=== PATIENT | female | born 2000 | race Caucasian/White ===

== ENCOUNTER 2022-04-29 12:47 | Emergency (ER) | payer OTHER, SELFPAY ==
[2022-04-29 13:51] VITALS: BP 131/84; PULSE 71; RESP 16; TEMP 36.9; O2SAT 99; BMI 20.7
--- NOTE | 2022-04-29 15:20 | ED.NURSE ---
Pt roomed to ED 2-2.
[2022-04-29 15:21] VITALS: BP 145/78; PULSE 81; O2SAT 97
--- NOTE | 2022-04-29 15:36 | CRLHL7_ITS ---
For Patients: As a result of the Century Cures Act, medical imaging exams and procedure reports are released immediately into your electronic medical record. You may view this report before your referring provider. If you have questions, please contact your health care provider. Indication: Fall, trauma. Technique: CT of the brain was performed without intravenous contrast. Comparison: None relevant available at this institution. Findings: No acute blurring of the almanzar-white differentiation. There is no intracranial hemorrhage. The ventricles are proportionate to the cerebral sulci. The 4th ventricle is midline. Basal cisterns appear patent. No abnormal extra-axial fluid collection identified. Hyperdensity within the caudal aspect of the 4th ventricle near the foramen of Luschka on the right is favored to represent choroid plexus calcification. Additional calcification of the choroid plexus along the lateral ventricles. There is no intracranial mass, mass effect or midline shift identified. No depressed calvarial fracture. Left maxillary sinus mucous retention cyst/polyp. Impression: No definite acute intracranial process. Please note that all CT scans at this facility use dose modulation, iterative reconstruction, and/or weight-based dosing when appropriate to reduce radiation dose to as low as reasonably achievable. Dictated by Jamar Orlando MD @ 04/29/2022 4:55:00 PM (Electronically Signed)
--- NOTE | 2022-04-29 15:36 | CRLHL7_ITS ---
For Patients: As a result of the Century Cures Act, medical imaging exams and procedure reports are released immediately into your electronic medical record. You may view this report before your referring provider. If you have questions, please contact your health care provider. Indication: Trauma. Technique: CT of the cervical spine performed without IV contrast. Comparison: None available. Findings: The cervical vertebral body heights are maintained without fracture. Moderate reversal to cervical lordosis. No significant spondylolisthesis. No overt evidence for high-grade spinal canal or neural foraminal narrowing. The visualized lung apices are clear. Neck soft tissues appear grossly intact Impression: 1. No acute fracture or traumatic subluxation of the cervical spine. 2. Moderate reversal to the cervical lordosis. Please note that all CT scans at this facility use dose modulation, iterative reconstruction, and/or weight-based dosing when appropriate to reduce radiation dose to as low as reasonably achievable. Dictated by Jamar Orlando MD @ 04/29/2022 4:58:35 PM (Electronically Signed)
[2022-04-29] MEDS: ACETAMINOPHEN 500 MG TABLET 1000 MG PO (15:50)
[2022-04-29] MEDS: ONDANSETRON ODT 4 MG TAB PO (15:50)
[2022-04-29 16:20] VITALS: BP 113/74; PULSE 80; O2SAT 98
--- NOTE | 2022-04-29 17:02 | ED.HEATRA ---
HPI - Head Injury General Date Seen: 04/29/22 Chief complaint: Head Injury/Pain Stated complaint: Passed out hit head Source: patient and other Mode of arrival: ambulatory Limitations: no limitations History of Present Illness HPI Narrative: Patient is a 21-year-old [employer] student who presents here after hyperventilation incident, that occurred approximately at 9:30 a.m. this morning. She felt her a panic attack coming on, then ran up 3 flights of stairs, she got to her room, and then promptly passed out striking her occipital region on the ground, she was out for a very short period of time but does know exactly how long she had been knocked out for. She came to when she had the pain in her head and also in her neck on the left side. She also feels nauseous and there is some photophobia with this. She took her Ativan which she normally takes for her panic attacks, that is much improved, but still has the above complaints, denies any numbness tingling or weakness, previous history of head injury, and she is not on any blood thinners, she called her parents who told her she should come to the emergency room to be seen. Complaint: head injury and fall Onset (ago): hour(s) Mechanism of Injury: fall Place: home Loss of Consciousness: yes and unsure Location of injury: occipital Severity: moderate Radiation: neck Other Injuries: neck Associated symptoms: nausea and neck pain Related Data Home Medications Medication Instructions Recorded Confirmed bupropion HCl 150 mg 24 hr tablet, mg PO 04/29/22 extended release lorazepam 0.5 mg tablet mg 04/29/22 sertraline 100 mg tablet mg 04/29/22 spironolactone 50 mg tablet mg 04/29/22 Allergies Allergy/AdvReac Type Severity Reaction Status Date / Time No Known Drug Allergies Allergy Verified 04/29/22 13:54 Review of Systems Status of ROS: Reports: 10 or more systems reviewed and unremarkable except as noted in History and below PFSH PFS Social History Smoking Status: Never smoker Do you use any of these nicotine containing products: None Second hand tobacco smoke exposure: No How often do you have a drink containing alcohol: monthly or less How many standard drinks containing alcohol do you have on a typical day: 1 or 2 How often do you have six or more drinks on one occasion: Never AUDIT-C Alcohol total score: 1 Non-prescribed substance use: marijuana (any form) Exam Narrative: Exam Narrative: Patient is seen in ED 2, she is in no apparent distress she is here with a friend, she is alert oriented, to person place and time, her pupils are equal round reactive, there is no nystagmus and she tracks normally, TMs are normal, cranial nerves 3-12 are normal, her neck is full range of motion of flexion extension lateral flexion and rotation, but she is tender along the left side of her neck, no bogginess to her head, a noted. Over septal region, but she complains of pain in this area. Chest is clear, easy respirations, heart sounds no clicks murmurs or gallops, abdomen soft, she has an IUD common says she is not . Fine motor movements fingers nose testing are normal, she walks normally and no ataxia is noted. Const: Vital Signs, click to edit/add: Vital Signs - 24 hr 04/29/22 13:51 04/29/22 15:21 04/29/22 16:20 Temperature 98.4 F Pulse Rate [Pulse Oximeter] 71 81 80 Respiratory Rate 16 Blood Pressure [Ri ght Upper Arm] 131/84 145/78 H 113/74 Pulse Oximetry 99 97 98 Oxygen Delivery Me thod Room Air Room Air Room Air Documenting provider has reviewed patient's vital signs: yes Course Course Hospital Course: Reviewed with the patient that her CTs of her head neck were normal, no evidence of anything other than a maxillary cyst, she may benefit from ENT follow-up. This can be done non acutely. I do however think she has a concussion would recommend that she use concussion protocol, and contact her Ant to get help with school. She should allow herself to sleep, no exercise, avoid alcohol, Tylenol for the headache, and use of Zofran for the nausea. Follow-up physician is recommended. She was very comfortable this plan. Vital Signs Vital signs: Initial Vital Signs Temperature 98.4 F 04/29/22 13:51 Temperature Source Temporal Artery Scan 04/29/22 13:51 Pulse Rate 71 04/29/22 13:51 Respiratory Rate 16 04/29/22 13:51 Blood Pressure 131/84 04/29/22 13:51 Blood Pressure Mean 99 04/29/22 13:51 Blood Pressure Position Sitting 04/29/22 13:51 Pulse Oximetry 99 04/29/22 13:51 Oxygen Delivery Method 04/29/22 13:51 Vital Signs Temperature 98.4 F 04/29/22 13:51 Pulse Rate 71 04/29/22 13:51 Respiratory Rate 16 04/29/22 13:51 Blood Pressure 131/84 04/29/22 13:51 Pulse Oximetry 99 04/29/22 13:51 Oxygen Delivery Method 04/29/22 13:51 Temperature 98.4 F 04/29/22 13:51 Pulse Rate 80 04/29/22 16:20 Respiratory Rate 16 04/29/22 13:51 Blood Pressure 113/74 04/29/22 16:20 Pulse Oximetry 98 04/29/22 16:20 Oxygen Delivery Method 04/29/22 16:20 MDM - Head Injury MDM Narrative Medical decision making narrative: Life-threatening differential diagnosis is considered include: Subarachnoid hemorrhage, subdural hemorrhage, epidural hemorrhage. Other differential diagnosis considered include concussion, closed head injury, or neck fracture. Imaging Data CT scan - head: Attestation: I have reviewed the pertinent imaging results. My impression: Negative head neck CT Radiologist's impression: Patient: [facility] Facility:?[facility] Patient ID:?[id number] Site Patient ID:?[id number]. Site :?[id number] Study:?CT Spine Cervical W/O-04/29/2022 4:08:23 PM Ordering Physician:Kojo Lyons Final Report: Indication: Trauma. Technique: CT of the cervical spine performed without IV contrast. Comparison: None available. Findings: The cervical vertebral body heights are maintained without fracture. Moderate reversal to cervical lordosis. No significant spondylolisthesis. No overt evidence for high-grade spinal canal or neural foraminal narrowing. The visualized lung apices are clear. Neck soft tissues appear grossly intact Impression: 1. No acute fracture or traumatic subluxation of the cervical spine. 2. Moderate reversal to the cervical lordosis. Please note that all CT scans at this facility use dose modulation, iterative reconstruction, and/or weight-based dosing when appropriate to reduce radiation dose to as low as reasonably achievable. Dictated by Jamar Orlando MD @ 04/29/2022 4:58:35 PM (Electronic Signature) Patient: KARMA PULLIAM Facility:?[facility] Patient ID:?[id number] Site Patient ID:?[id number]. Site :?[id number] Study:?CT Head W/O-04/29/2022 4:09:06 PM Ordering Physician:Kojo Lyons Final Report: Indication: Fall, trauma. Technique: CT of the brain was performed without intravenous contrast. Comparison: None relevant available at this institution. Findings: No acute blurring of the almanzar-white differentiation. There is no intracranial hemorrhage. The ventricles are proportionate to the cerebral sulci. The 4th ventricle is midline. Basal cisterns appear patent. No abnormal extra-axial fluid collection identified. Hyperdensity within the caudal aspect of the 4th ventricle near the foramen of Luschka on the right is favored to represent choroid plexus calcification. Additional calcification of the choroid plexus along the lateral ventricles. There is no intracranial mass, mass effect or midline shift identified. No depressed calvarial fracture. Left maxillary sinus mucous retention cyst/polyp. Impression: No definite acute intracranial process. Please note that all CT scans at this facility use dose modulation, iterative reconstruction, and/or weight-based dosing when appropriate to reduce radiation dose to as low as reasonably achievable. Dictated by Jamar Orlando MD @ 04/29/2022 4:55:00 PM (Electronic Signature) Discharge Plan Discharge Clinical Impression: Acute neck pain, Concussion without loss of consciousness, Closed head injury Patient Disposition: Home, Self-Care Condition: Stable Instructions: Concussion (ED), Head Injury (ED), Post Concussion Syndrome (ED), Neck Pain (ED) Additional Instructions: Home rest Tylenol 1 g every 8 hours, after 48 hours you may add additional ibuprofen, Zofran for the nausea the only real bad side effect of the Zofran is constipation. Recommend you contact your Ant, and tell that she have a concussion, may need some help with her studies, sleeping is okay and should be encouraged, but concentration and reading should be decreased over the next 48-72 hours to allow your brain to heal. Exercises should also not occur, and you should really take it easy. I recommend follow-up with the concussion specialist at the [facility], is the local person to see. Prescriptions: No Action sertraline 100 mg tablet lorazepam 0.5 mg tablet spironolactone 50 mg tablet bupropion HCl 150 mg tablet extended release 24 hr PO Follow Up/Referrals: Travon Argueta MD [Staff Physician] - Provider,Not a Local [Primary Care Provider] - Stand Alone Forms: [employer] Info Instructions
[2022-04-29 17:20] VITALS: BP 114/74; PULSE 79; RESP 18; TEMP 37; O2SAT 99
== END 2022-04-29 17:29 | disposition home or self-care (01) ==
PROVIDERS: Emergency Provider Family Medicine
DX: S06.9X9A Unspecified intracranial injury with loss of consciousness of unspecified duration, initial encounter (principal); G89.11 Acute pain due to trauma; M54.2 Cervicalgia; W18.39XA Other fall on same level, initial encounter; Y93.89 Activity, other specified; Y92.032 Bedroom in apartment as the place of occurrence of the external cause; Y99.8 Other external cause status
CPT/HCPCS: 70450; 72125; 99284; A9270

== ENCOUNTER 2022-10-23 10:48 | Emergency (ER) | payer OTHER, SELFPAY ==
[2022-10-23] VITALS (12 sets, daily range): BP systolic 116–123; BP diastolic 62–77; PULSE 89–104; RESP 22; TEMP 38.1–38.2; O2SAT 96–100; BMI 20.7
--- NOTE | 2022-10-23 11:41 | ED_ITS ---
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 She is able to drink liquids adequately. She has had no cough, no neck stiffness or rigidity, no fevers of marked rigors but does feel chilled occasionally patient has no skin rashes. She has noticed her joints feel little ?swollen? Patient reports she is on several mental health medications for anxiety and depression and sleep. Related Data Home Medications Medication Instructions Recorded Confirmed bupropion HCl 150 mg 24 hr tablet, mg PO 04/29/22 extended release lorazepam 0.5 mg tablet mg 04/29/22 sertraline 100 mg tablet mg 04/29/22 spironolactone 50 mg tablet mg 04/29/22 Allergies Allergy/AdvReac Type Severity Reaction Status Date / Time No Known Drug Allergies Allergy Verified 04/29/22 13:54 Review of Systems Status of ROS: Reports: 6 or more systems reviewed and unremarkable except as noted in History and below Narrative: Patient reports she had mononucleosis several years ago [facility] Social History Smoking Status: Never smoker Do you use any of these nicotine containing products: None Second hand tobacco smoke exposure: No How often do you have a drink containing alcohol: monthly or less How many standard drinks containing alcohol do you have on a typical day: 1 or 2 How often do you have six or more drinks on one occasion: Never AUDIT-C Alcohol total score: 1 Non-prescribed substance use: marijuana (any form) service: No Exam Narrative: Exam Narrative: Objective: Temperature is 100.6? vital signs otherwise unremarkable O2 sat excellent at 99% HEENT shows mildly reddened throat no exudate no marked swelling, no trismus, neck is supple Pulses regular Extremities are no edema neurologic nonfocal grossly, no skin rashes noted Const: Vital Signs, click to edit/add: Vital Signs - 24 hr 10/23/22 11:08 10/23/22 11:18 10/23/22 11:30 Temperature 100.6 F H Pulse Rate 98 93 Pulse Rate [Pulse Oximeter] 96 Respiratory Rate 22 Blood Pressure Blood Pressure [Le ft Upper Arm] 123/70 Pulse Oximetry 99 100 100 Oxygen Delivery Me thod Room Air 10/23/22 11:31 10/23/22 11:45 10/23/22 12:00 Temperature Pulse Rate 89 92 102 H Pulse Rate [Pulse Oximeter] Respiratory Rate Blood Pressure 117/77 Blood Pressure [Le ft Upper Arm] Pulse Oximetry 99 99 99 Oxygen Delivery Me thod 10/23/22 12:02 10/23/22 12:15 10/23/22 12:30 Temperature 100.6 F H Pulse Rate 104 H 98 Pulse Rate [Pulse Oximeter] Respiratory Rate Blood Pressure Blood Pressure [Le ft Upper Arm] Pulse Oximetry 99 98 Oxygen Delivery Me thod 10/23/22 12:45 10/23/22 13:00 10/23/22 13:07 Temperature 100.8 F H Pulse Rate 95 95 97 Pulse Rate [Pulse Oximeter] Respiratory Rate Blood Pressure 116/62 Blood Pressure [Le ft Upper Arm] Pulse Oximetry 96 96 96 Oxygen Delivery Me thod Course Vital Signs Vital signs: Initial Vital Signs Temperature 100.6 F H 10/23/22 11:08 Temperature Source Temporal Artery Scan 10/23/22 11:08 Pulse Rate 96 10/23/22 11:08 Pulse Rhythm Regular 10/23/22 11:08 Respiratory Rate 22 10/23/22 11:08 Blood Pressure 123/70 10/23/22 11:08 Blood Pressure Mean 87 10/23/22 11:08 Pulse Oximetry 99 10/23/22 11:08 Oxygen Delivery Method Room Air 10/23/22 11:08 Vital Signs Temperature 100.6 F H 10/23/22 11:08 Pulse Rate 96 10/23/22 11:08 Respiratory Rate 22 10/23/22 11:08 Blood Pressure 123/70 10/23/22 11:08 Pulse Oximetry 99 10/23/22 11:08 Oxygen Delivery Method Room Air 10/23/22 11:08 Temperature 100.8 F H 10/23/22 13:00 Pulse Rate 97 10/23/22 13:07 Respiratory Rate 22 10/23/22 11:08 Blood Pressure 116/62 10/23/22 13:07 Pulse Oximetry 96 10/23/22 13:07 Oxygen Delivery Method Room Air 10/23/22 11:08 Medical Decision Making MDM Narrative Medical decision making narrative: Patient is a 22 white female with sore throat some nasal congestion some body aches and fever. At this point I think it be reasonable to rule out strep, rule out COVID/influenza/RSV, rule out mononucleosis. Patient will get the above- mentioned studies, get some Tylenol orally. Disposition pending findings above. She was comfortable as planned. If these tests are all reassuring then simply Tylenol and Advil at home and observation time. Would recommend follow up with regular doctor in 2-3 days not improving changes concerns worsening return to the ED. Addendum: The patient's strep, COVID/influenza/RSV, mono spot test are all negative. White count is a little bit elevated. Recommend rest observation fluids return if problems concerns difficulty she was comfortable this plan thanks Lab Data Labs: Lab Results 10/23/22 10/23/22 Range/Units 11:51 12:05 WBC 14.40 H (4.50-11.00) K/uL RBC 4.79 (4.00-5.20) m/uL Hgb 13.7 (12.0-16.0) gm/dL Hct 43.0 (33.0-51.0) % MCV 90 (80-100) fL MCH 29 (26-34) pg MCHC 32 (32-36) gm/dL RDW Coeff of Padmini 12.4 (11.5-15.5) % Plt Count 173 (140-440) K/uL Neut % (Auto) 87.2 H (42.0-72.0) % Lymph % (Auto) 6.0 L (20-44) % [place] % (Auto) 5.7 (0.0-11.0) % Eos % (Auto) 0.7 (0.0-7.0) % Baso % (Auto) 0.1 (0.0-3.0) % Neut # (Auto) 12.60 H (1.7-7.0) K/uL Lymph # (Auto) 0.90 (0.90-2.90) K/uL [place] # (Auto) 0.80 (0.00-0.90) K/UL Eos # (Auto) 0.10 (0.00-0.50) K/uL Baso # (Auto) 0.00 (0.00-0.30) K/uL Sodium 137 (135-149) mmol/L Potassium 4.0 (3.6-5.1) mmol/L Chloride 104 (96-114) mmol/L Carbon Dioxide 24 (20-32) mmol/L BUN 14 (5-24) mg/dL Creatinine 0.9 (0.5-1.5) mg/dL Estimated Creat Clear 98.29 Estimated GFR 93 ml/min Glucose 100 (60-115) mg/dL Calcium 8.8 (8.4-10.6) mg/dL SARS-CoV-2 (PCR) Negative SARS-CoV-2 (Negative) Monoscreen Negative (Negative) Influenza Type A (PCR) Negative PCR FLU A (Negative) Influenza Type B (PCR) Negative PCR FLU B (Negative) RSV (PCR) Negative PCR RSV (Negative) Group A Strep DNA NOT DETECTED (Not Detectd) Discharge Plan Discharge Clinical Impression: Acute viral syndrome, Pharyngitis Patient Disposition: Home, Self-Care Condition: Stable Additional Instructions: Rest, light activity, Tylenol Advil as needed, recheck with primary care in 2-3 days not resolved, return to ED sooner problems or concerns. Activity Level: Light activity Discharge Diet: Regular Prescriptions: No Action sertraline 100 mg tablet lorazepam 0.5 mg tablet spironolactone 50 mg tablet bupropion HCl 150 mg tablet extended release 24 hr PO Follow Up/Referrals: Provider,Not a Local [Primary Care Provider] - Stand Alone Forms: [employer] Info Instructions
--- OUTSIDE RECORDS SUMMARY | 2022-10-23 11:55 | XMS_ITS | Continuity of Care Document ---
Author Name Unknown Organization [facility] Address [place] [address] [place] [address]- Care Team Providers Care Aws Software Development Engineer Name Role Phone Tuyet Reyes MD Primary Care Physician Encounter 08/04/18 - 08/06/18 [place] [address] [address] [place] [address] [facility] Encounter Diagnosis Fever(Discharge Diagnosis) - 08/04/18 Fatigue(Discharge Diagnosis) - 08/04/18 Headache(Discharge Diagnosis) - 08/04/18 Sore throat(Discharge Diagnosis) - 08/04/18 Muscle ache(Discharge Diagnosis) - 08/04/18 Attending Physician: Tuyet Reyes MD Allergies, Adverse Reactions, Alerts No Known Medication Allergies Assessment and Plan Extracted from: Title:Febrile illness/fatigue/headache Author:Tuyet Rolon MD Date:08/04/18 1. Fatigue 2. Febrile illness 3. Body aches 4. Headaches Likely viral etiology with WBC 4,200. Negative strep ID, negative mono spot, negative flu test. Send out labs include: Lyme titers, EBV and CMV titers, Vit D (low in the past), NASIR and Rheumatoid factor. I will call mother with these results: [phone] Sx cares include: Sleep: needs 8-9 hours Hydration: urine output clear or light yellow to assure adequate H2O intake Ibuprofen for fever >101 and/or for throat pain. Keep track of fevers. Follow-up if fevers >101 persist. For worsening headaches consider referral to Neurology ? 30 minutes total/20 minutes counseling Immunizations Given and Recorded Vaccine Date Status Refusal Reason influenza virus vaccine, inactivated 03/31/17 Give n influenza virus vaccine, inactivated 06/13/16 Give n influenza virus vaccine, inactivated 04/27/15 Rebel rded influenza virus vaccine, inactivated 1 06/05/11 Gi minh influenza virus vaccine, inactivated 2 04/11/10 Gi minh influenza virus vaccine, inactivated 3 05/05/08 Gi minh meningococcal conjugate vaccine 03/31/17 Given meningococcal conjugate vaccine 4 12/07/12 Given human papillomavirus vaccine 06/13/16 Given human papillomavirus vaccine 02/12/16 Given human papillomavirus vaccine 12/11/15 Given tetanus/diphth/pertuss (Tdap) adult/adol 5 12/07/12 Given Hep A, pediatric/adolescent 6 05/05/08 Given Hep A, pediatric/adolescent 7 07/29/07 Given varicella 8 07/29/07 Given varicella 07/14/01 Recorded DTaP 02/28/05 Recorded DTaP 11/02/01 Recorded DTaP 01/06/01 Recorded DTaP 00 Recorded DTaP 00 Recorded MMR (measles/mumps/rubella) 02/28/05 Recorded MMR (measles/mumps/rubella) 07/14/01 Recorded IPV 02/28/05 Recorded IPV 01/06/01 Recorded IPV 00 Recorded pneumococcal (PCV7) 11/02/01 Recorded pneumococcal (PCV7) 07/14/01 Recorded pneumococcal (PCV7) 01/06/01 Recorded pneumococcal (PCV7) 00 Recorded Hib (PRP-T) 11/02/01 Recorded Hib (PRP-T) 01/06/01 Recorded Hib (PRP-T) 9 01/06/01 Recorded Hib (PRP-T) 00 Recorded Hib (PRP-T) 00 Recorded hepatitis B pediatric vaccine 04/13/01 Recorded hepatitis B pediatric vaccine 00 Recorded hepatitis B pediatric vaccine 00 Recorded 1Result Comment: Unknown Unit of Measure: UNKNOWNUNIT 2Result Comment: Unknown Unit of Measure: UNKNOWNUNIT 3Result Comment: Unknown Unit of Measure: UNKNOWNUNIT 4Result Comment: Unknown Unit of Measure: UNKNOWNUNIT 5Result Comment: Unknown Unit of Measure: UNKNOWNUNIT 6Result Comment: Unknown Unit of Measure: UNKNOWNUNIT 7Result Comment: Unknown Unit of Measure: UNKNOWNUNIT 8Result Comment: Unknown Unit of Measure: UNKNOWNUNIT 9Result Comment: [01/17/2014 Uncharted] duplicate date Medications drospirenone-ethinyl estradiol 3 mg-0.02 mg oral tablet See Instructions, Instructions: TAKE 1 TABLET DAILY, # 84 tab(s), 4 Refill(s), Type: Soft Stop, Pharmacy: [facility], TAKE 1 TABLET DAILY Start Date: 03/31/17 Status: Ordered Problem List Condition Effective Dates Status Health Status Inform ant Uses control(Confirmed) Active Irregular menses(Confirmed) Active Diagnosis Diagnosis Type Effective Dates Health Status Clini becki Service Informant Fever Discharge Diagnosis 08/04/18 Muscle ache Discharge Diagnosis 08/04/18 Sore throat Discharge Diagnosis 08/04/18 Fatigue Discharge Diagnosis 08/04/18 Headache Discharge Diagnosis 08/04/18 Procedures Procedure Date Related Diagnosis Body Site Status Collection of venous blood b y venipuncture 08/04/18 Completed Collection of venous blood b y venipuncture 08/04/18 Completed Results Most recent to oldest [Reference Range]: 1 EBV Acute IA Reference Lab (08/04/18 11:00 AM) Mononucleosis Scrn [Negative] Negative (08/04/18 11:00 AM) RBC Morphology [Normal] Normal (08/04/18 11:00 AM) Hct [33.0-51.0 %] 40.3 % (08/04/18 11:00 AM) Hgb [12.0-16.0 g/dL] 13.0 g/dL (08/04/18 11:00 AM) MCH [26.0-34.0 pg] 28.2 pg (08/04/18 11:00 AM) MCHC [32.0-36.0 %] 32.4 % (08/04/18 11:00 AM) MCV [80.0-100.0 fL] 87.0 fL (08/04/18 11:00 AM) MPV [6.5-10.0 fL] 9.4 fL (08/04/18 11:00 AM) Platelet [150-450 x10^3/uL] 168 x10^3/uL (08/04/18 11:00 AM) RBC [4.00-5.20 x10^6/uL] 4.63 x10^6/uL (08/04/18 11:00 AM) RDW [11.5-13.1 %] 13.0 % (08/04/18 11:00 AM) Sed Rate [0-20 mm] 2 mm (08/04/18 11:04 AM) WBC [4.5-11.0 x10^3/uL] 4.2 x10^3/uL *LOW* (08/04/18 11:00 AM) Instr WBC [4.5-11.0 x10^3/uL] 4.2 x10^3/ uL *LOW* (08/04/18 11:00 AM) CMV IgG Reference Lab (08/04/18 11:00 AM) CMV IgM Reference Lab (08/04/18 11:00 AM) Eosinophils % Man [0.0-3.0 %] 0.0 % (08/04/18 11:00 AM) Lymphocytes % Man [24.0-44.0 %] 15.0 % *LOW* (08/04/18 11:00 AM) Monocytes % Man [3.0-6.0 %] 2.0 % *LOW* (08/04/18 11:00 AM) Vitamin D 25-OH Reference Lab (08/04/18 11:00 AM) Rheumatoid Factor Reference Lab (08/04/18 11:04 AM) Neutrophils % Man [35.0-66.0 %] 83.0 % *HI* (08/04/18 11:00 AM) Platelet Estimate [Adequate] Adequate (08/04/18 11:00 AM) Culture Throat No GABS Recovd (08/04/18 10:58 AM) Lyme WB Reference Lab (08/04/18 11:00 AM) Influenza A/B [Neg A & B] Neg A & B (08/04/18 10:58 AM) Strep ID [Negative] Negative (08/04/18 10:58 AM) Vital Signs Most recent to oldest [Reference Range]: 1 Height Measured 69.25 in (08/04/18 10:33 AM) Weight Measured 124 lb (08/04/18 10:33 AM) Body Mass Index 18.18 kg/m2 (08/04/18 10:33 AM) BSA 1.66 m2 (08/04/18 10:33 AM) Temperature Temporal [97.3-100 DegF] 101 .6 DegF *HI* (08/04/18 10:33 AM) Oxygen Saturation [94-100 %] 96 % (08/04/18 10:33 AM) Social History Social History Type Response Smoking Status Never (less than 100 in lifetime); Concerns about tobacco use in household: No entered on: 10/15/17
--- OUTSIDE RECORDS SUMMARY | 2022-10-23 11:55 | XMS_ITS | Continuity of Care Document ---
Author Name Unknown Organization [facility] Address [facility] [address] [place] [address]- Encounter 11/26/17 - 11/28/17 [facility] [address] [place], [place] [address] [address] Encounter Diagnosis FHx: pulmonary embolism(Discharge Diagnosis) - 11/26/17 Anemia(Discharge Diagnosis) - 11/26/17 Preop examination(Discharge Diagnosis) - 11/26/17 Stenosis of nasolacrimal duct(Discharge Diagnosis) - 11/26/17 Attending Physician: Tuyet Reyes MD Allergies, Adverse Reactions, Alerts No Known Medication Allergies Assessment and Plan Extracted from: Title:Preop Author:Tuyet Reyes MD Date:11/26 Patient: KARMA PULLIAM Age: 17 years Sex: Female : 2000 Associated Diagnoses: None Author: Tuyet Reyes MD Preoperative Information Indication for surgery Chief Complaint 11/26/2017 3:07 PM CDT Preop DCR right eye on 12/01/17 @ [facility] fax [phone] preop Review of Systems Constitutional: Negative. Eye: nasolacrimal duct obstruction, No discharge. Ear/Nose/Mouth/Throat: No nasal congestion, No sore throat. Respiratory: No shortness of breath, No cough. Gastrointestinal: No vomiting, No diarrhea, No constipation. Genitourinary: No dysuria. Hematology/Lymphatics: No bruising tendency. Immunologic: No recurrent infections. Musculoskeletal: No muscle pain. Integumentary: No rash, No skin lesion. Neurologic: Alert and oriented X4. Health Status Allergies: Allergic Reactions (All) No Known Medication Allergies Medications: (Selected) Prescriptions Prescribed drospirenone-ethinyl estradiol 3 mg-0.02 mg oral tablet: See Instructions, Instructions: TAKE 1 TABLET DAILY, # 84 tab(s), 4 Refill(s), Type: Soft Stop, Pharmacy: [facility], TAKE 1 TABLET DAILY, No aspirin or Ibuprofen Problem list: All Problems (Selected) Irregular menses / SNOMED CT 250485119 / Confirmed Uses control / SNOMED CT 24868976 / Confirmed Allergic Rhinitis, Cause Unspecified / ICD-9-CM 477.9 Histories Past Medical History: No active or resolved past medical history items have been selected or recorded. Family History: Diabetes.. Grandfather (M) , No family history of anesthesia reactions, bleeding or clotting problems Procedure history: No active procedure history items have been selected or recorded. Social History: Tobacco Assessment Never (less than 100 in lifetime), Household tobacco concerns: No. Other Assessment Comments: 01/17/2014 - [employer] , Krystal Drinks well water, no fluoride supplement. Physical Examination Vital Signs 11/26/2017 3:07 PM CDT Temperature Temporal 98.5 DegF Peripheral Pulse Rate 60 bpm Systolic Blood Pressure 108 mmHg Diastolic Blood Pressure 66 mmHg Mean Arterial Pressure 80 mmHg Measurements from flowsheet : Measurements 11/26/2017 3:07 PM CDT Height Measured - Standard 68.75 in Weight Measured - Standard 119 lb BSA 1.62 m2 Body Mass Index 17.7 kg/m2 Body Mass Index Percentile 7.60 General: Alert and oriented. Eye: Pupils are equal, round and reactive to light, Extraocular movements are intact. HENT: Tympanic membranes are clear, Oral mucosa is moist, No pharyngeal erythema. Neck: Supple, Non-tender. Respiratory: Lungs are clear to auscultation, Respirations are non-labored, Breath sounds are equal. Cardiovascular: Normal rate, Regular rhythm, No murmur. Gastrointestinal: Soft, Non-tender, Non-distended, Normal bowel sounds, No organomegaly. Musculoskeletal: Normal range of motion, Normal strength. Integumentary: Warm, [place], No rash. Neurologic: Alert, Oriented, Normal motor function. Psychiatric: Cooperative, Appropriate mood & affect. Health Maintenance Recommendations Pending (in the next year) There are no current recommendations pending Due In Future Well Child 2 yrs - 18 yrs not due until 03/31/18 and every 1 year(s) Satisfied (in the past 1 year) Satisfied Body Mass Index Check (Female) on 11/26/17. Body Mass Index Check (Female) on 10/15/17. Body Mass Index Check (Female) on 03/31/17. Well Child 2 yrs - 18 yrs on 03/31/17. Impression and Plan Diagnosis ok for anesthesia. Addendum by Tuyet Reyes MD on November 26, 2017 4:28 PM CDT Mother with pulmonary embolism last year . Would like Karma checked for clotting disorders due to her OCPs. Labs pending. She also had a hx of anemia and would like Karma's hgb checked. IT is normal Immunizations Given and Recorded Vaccine Date Status [...] varicella 8 07/29/07 Given varicella 07/14/01 Recorded IPV 02/28/05 Recorded IPV 01/06/01 Recorded IPV 00 Recorded MMR (measles/mumps/rubella) 02/28/05 Recorded MMR (measles/mumps/rubella) 07/14/01 Recorded DTaP 02/28/05 Recorded DTaP 11/02/01 Recorded DTaP 01/06/01 Recorded DTaP 00 Recorded DTaP 00 Recorded Hib (PRP-T) 11/02/01 Recorded Hib (PRP-T) 01/06/01 Recorded Hib (PRP-T) 9 01/06/01 Recorded Hib (PRP-T) 00 Recorded Hib (PRP-T) 00 Recorded pneumococcal (PCV7) 11/02/01 Recorded pneumococcal (PCV7) 07/14/01 Recorded pneumococcal (PCV7) 01/06/01 Recorded pneumococcal (PCV7) 00 Recorded hepatitis B pediatric vaccine 04/13/01 [...] tab(s), 4 Refill(s), Type: Soft Stop, Pharmacy: [facility], TAKE 1 TABLET DAILY Start Date: 03/31/17 Status: Ordered Problem List Condition Effective Dates Status Health Status Inform ant Uses control(Confirmed) Active Irregular menses(Confirmed) Active Diagnosis Diagnosis Type Effective Dates Health Status Clinical Service Informant Stenosis of nasolacrimal duct Discharge Diagnosis 11/26/17 Anemia Discharge Diagnosis 11/26/17 Preop examination Discharge Diagnosis 11/26/17 FHx: pulmonary embolism Discharge Diagnosis 11/26/17 Procedures Procedure Date Related Diagnosis Body Site Status Collection of venous blood b y venipuncture 11/26/17 Completed Collection of venous blood b y venipuncture 11/26/17 Completed Results Hematology Most recent to oldest [Reference Range]: 1 WBC [4.5-13.0 x10^3/uL] 7.3 x10^3/uL (11/26/17 3:45 PM) Instr WBC [4.5-13.0 x10^3/uL] 7.3 x10^3/ uL (11/26/17 3:45 PM) RBC [4.10-5.10 x10^6/uL] 4.46 x10^6/uL (11/26/17 3:45 PM) Hgb [12.0-16.0 g/dL] 13.0 g/dL (11/26/17 3:45 PM) Hct [33.0-51.0 %] 38.1 % (11/26/17 3:45 PM) MCV [78.0-102.0 fL] 85.4 fL (11/26/17 3:45 PM) MCH [25.0-35.0 pg] 29.0 pg (11/26/17 3:45 PM) MCHC [32.0-36.0 %] 34.0 % (11/26/17 3:45 PM) RDW [11.5-14.0 %] 12.3 % (11/26/17 3:45 PM) Platelet [150-450 x10^3/uL] 210 x10^3/uL (11/26/17 3:45 PM) MPV [6.5-10.0 fL] 9.0 fL (11/26/17 3:45 PM) Lymphocytes % Man [25.0-45.0 %] 47.0 % *HI* (11/26/17 3:45 PM) Neutrophils % Man [34.0-64.0 %] 49.0 % (11/26/17 3:45 PM) Monocytes % Man [3.0-6.0 %] 2.0 % *LOW* (11/26/17 3:45 PM) Eosinophils % Man [0.0-3.0 %] 1.0 % (11/26/17 3:45 PM) Basophils % Man [0.0-1.0 %] 1.0 % (11/26/17 3:45 PM) Platelet Estimate [Adequate] Adequate (11/26/17 3:45 PM) RBC Morphology [Normal] Normal (11/26/17 3:45 PM) Vital Signs Most recent to oldest [Reference Range]: 1 Height Measured 68.75 in (11/26/17 3:07 PM) Weight Measured 119 lb (11/26/17 3:07 PM) Body Mass Index 17.7 kg/m2 (11/26/17 3:07 PM) BSA 1.62 m2 (11/26/17 3:07 PM) Temperature Temporal [96.8-100.4 DegF] 9 8.5 DegF (11/26/17 3:07 PM) Blood Pressure [90-138/45-84 mmHg] 108/6 6mmHg (11/26/17 3:07 PM) Mean Arterial Pressure 80 mmHg (11/26/17 3:07 PM) Peripheral Pulse Rate [55-90 bpm] 60 bpm (11/26/17 3:07 PM) Allergies Verified? Yes (11/26/17 3:07 PM) Medication History Verified? Yes (11/26/17 3:07 PM) Social History Social History Type Response Smoking Status Never (less than 100 in lifetime); Concerns about tobacco use in household: No entered on: 10/15/17
--- OUTSIDE RECORDS SUMMARY | 2022-10-23 11:55 | XMS_ITS | Continuity of Care Document ---
Author Name Unknown Organization [facility] Address [facility] [address] [place] [address]- Care Team Providers Care Research Fellow Name Role Phone Tuyet Reyes MD Primary Care Physician Encounter 01/13/19 - 01/15/19 [place] [address] [address] [place] [address] [facility] Encounter Diagnosis Immunization due(Discharge Diagnosis) - 01/13/19 Well adult exam(Discharge Diagnosis) - 01/13/19 Depression screen(Discharge Diagnosis) - 01/13/19 Body mass index 5th to < 85th percentile, pediatric(Discharge Diagnosis) - 01/13/19 Attending Physician: Tuyet Reyes MD Allergies, Adverse Reactions, Alerts No Known Medication Allergies Assessment and Plan Extracted from: Title:18 year [facility] Author:Tuyet Reyes MD Date: Impression and Plan Plan: BMI discussed. Counseled on healthy diet and physical activity recommendations., Return in 1 year for well exam.. Refer to: Referral to dentist. 1. 18 year [facility] 2. exercise -induced bronchospasm 3. Irregular menses and continues on OCPs Immunizations Given and Recorded Vaccine Date Status [...] 9Result Comment: [01/17/2014 Uncharted] duplicate date Medications Ericka 0.35 mg oral tablet = 1 tab(s) ( 0.35 mg ), Oral, daily, # 84 tab(s), 3 Refill(s), Type: Maintenance, Pharmacy: [facility], 1 tab(s) Oral daily,x84 day(s) Start Date: 01/13/19 Stop Date: 12/15/19 Status: Ordered ProAir HFA 90 mcg/inh inhalation aerosol 2 puff(s), Inhale, qid, # 1 EA, 2 Refill(s), Type: Maintenance, Pharmacy: [facility], 2 puff(s) Inhale qid Start Date: 01/15/19 Status: Ordered Problem List Condition Effective Dates Status Health Status Inform ant Uses control(Confirmed) Active Irregular menses(Confirmed) Active Diagnosis Diagnosis Type Effective Dates Health Status Clinical Service Informant Immunization due Discharge Diagnosis 01/13/19 Well adult exam Discharge Diagnosis 01/13/19 Depression screen Discharge Diagnosis 01/13/19 Body mass index 5th to < 85th percentile, pediatric Discharge Diagnosis 01/13/19 Vital Signs Most recent to oldest [Reference Range]: 1 Height Measured 69.25 in (01/13/19 1:14 PM) Weight Measured 130.6 lb (01/13/19 1:14 PM) Body Mass Index 19.15 kg/m2 (01/13/19 1:14 PM) BSA 1.7 m2 (01/13/19 1:14 PM) Blood Pressure [90-130/60-80 mmHg] 101/5 4mmHg (01/13/19 1:14 PM) Mean Arterial Pressure 70 mmHg (01/13/19 1:14 PM) Allergies Verified? Yes (01/13/19 1:14 PM) Medication History Verified? Yes (01/13/19 1:14 PM) Social History Social History Type Response Smoking Status Never (less than 100 in lifetime); Concerns about tobacco use in household: No entered on: 10/15/17
--- OUTSIDE RECORDS SUMMARY | 2022-10-23 11:55 | XMS_ITS | Continuity of Care Document ---
Author Name Unknown Organization [facility] Address [facility] [address] [address]- Care Team Providers Care Pea Viner Mechanic Name Role Phone Tuyet Reyes MD Primary Care Physician Encounter(s) 08/04/18 [facility] [address] [place] [address] [facility] Attending Physician: Tuyet Reyes MD 11/26/17 - 11/26/17 [facility] [address] [place] [address]- [place] 11/26/17 - 11/26/17 [facility] [address] [place] [address]- [place] 11/26/17 - 11/28/17 [facility] [address] [place] [address]- [place] Encounter Diagnosis FHx: pulmonary embolism(Discharge Diagnosis) - 11/26/17 Anemia(Discharge Diagnosis) - 11/26/17 Preop examination(Discharge Diagnosis) - 11/26/17 Stenosis of nasolacrimal duct(Discharge Diagnosis) - 11/26/17 Attending Physician: Tuyet eRyes MD 10/15/17 - 10/17/17 [facility] [address] [place] [address]- [place] Encounter Diagnosis Fever(Discharge Diagnosis) - 10/15/17 Lymphadenopathy(Discharge Diagnosis) - 10/15/17 Attending Physician: Savage Alexandra MD Allergies, Adverse Reactions, Alerts No Known Medication Allergies Assessment and Plan Extracted from: Title:Preop Author:Tuyet Reyes MD Date:11/26 Patient: KARMA PULLIAM Age: 17 years Sex: Female : 2000 Associated Diagnoses: None Author: Tuyet Reyes MD Preoperative Information Indication for surgery Chief Complaint 11/26/2017 3:07 PM CDT Preop DCR right eye on 12/01/17 @ [facility] fax [phone] preop Review of Systems Constitutional: Negative. Eye: [...] Problems (Selected) Irregular menses / SNOMED CT 573635520 / Confirmed Uses control / SNOMED CT 39777732 / Confirmed Allergic Rhinitis, Cause Unspecified / [...] concerns: No. Other Assessment Comments: 01/17/2014 - Krystal Goncalves LPN Drinks well water, no fluoride supplement. Physical [...] range of motion, Normal strength. Integumentary: Warm, [place], No rash. Neurologic: Alert, Oriented, Normal motor [...] Plan Diagnosis ok for anesthesia. Addendum by Elva Reyes MDah on November 26, 2017 4:28 PM CDT Mother with pulmonary embolism last year . Would like Karma checked for clotting disorders due to her OCPs. Labs pending. She also had a hx of anemia and would like Karma's hgb checked. IT is normal Extracted from: Title:Fever-lymphadenopathy Author:Ibrahima MENDOZA, Naldo conway Date:10/15/17 Impression and Plan Diagnosis Fever (YAS70-PM R50.9). Sore throat (XDM28-ZF J02.9). Lymphadenopathy (EZO77-DA R59.1). Plan: Patient has fever and sore throat was swollen submandibular lymph nodes. Patient is on cephalexin so she does not have strep. This is most likely a new illness. We discussed enterovirus, influenza, adenovirus, mono. We did check an influenza swab given her history of mild asthma and it was negative. She does not have any respiratory symptoms at this time. This will most likely resolve on its own or blossoming into a more typical viral illness. We recommended Tylenol or ibuprofen for pain and fever. We will observe for 72 hours and if fever persists or dehydration, respiratory distress, or questions we will follow up sooner.. Extracted from: Title:16 year WCC/OCP refill Author:Anna Marie Reyes MD [facility] Date:03/31/17 Impression and Plan Plan: Immunizations per schedule. Diet: Age appropriate diet, Referral to dentist, BMI discussed. Counseled on healthy diet and physical activity recommendations.. Anticipatory Guidance: Adolescence (11 - 21 years). 1. 16 year WCC 2. Irregular menses continue OCPs Immunizations Given and Recorded Vaccine Date [...] tab(s), 4 Refill(s), Type: Soft Stop, Pharmacy: [facility] HOME DELIVERY, TAKE 1 TABLET DAILY Start Date: 03/31/17 Status: Ordered Problem List Condition Effective Dates Status Health Status Inform ant Uses control(Confirmed) Active Irregular menses(Confirmed) Active Diagnosis Diagnosis Type Effective Dates Health Status Clinical Service Informant Lymphadenopathy Discharge Diagnosis 10/15/17 Depression screen Discharge Diagnosis 12/11/15 Encounter for well child exam with abnormal findings Discharge Diagnosis 12/11/15 Exercise-induced asthma Discharge Diagnosis 12/11/15 Uses control Discharge Diagnosis 03/31/17 Body mass index 5th to < 85th percentile, pediatric Discharge Diagnosis 12/11/15 Well child check Discharge Diagnosis 12/11/15 Immunization due Discharge Diagnosis 12/11/15 Well child check Discharge Diagnosis 03/31/17 Depression screen Discharge Diagnosis 03/31/17 Body mass index 5th to < 85th percentile, pediatric Discharge Diagnosis 03/31/17 Irregular menses Discharge Diagnosis 03/31/17 Immunization due Discharge Diagnosis 02/12/16 Fever Discharge Diagnosis 10/15/17 Immunization due Discharge Diagnosis 03/31/17 Well child visit Discharge Diagnosis 01/17/14 BMI,pediatric 5% - <85% Discharge Diagnosis 01/17/14 Stenosis of nasolacrimal duct Discharge Diagnosis 11/26/17 Anemia Discharge Diagnosis 11/26/17 Preop examination Discharge Diagnosis 11/26/17 FHx: pulmonary embolism Discharge Diagnosis 11/26/17 Immunization due Discharge Diagnosis 06/13/16 Procedures Procedure Date Related Diagnosis Body Site Status Collection of venous blood b y venipuncture 11/26/17 Completed Collection of venous blood b y venipuncture 11/26/17 Completed Collection of venous blood b y venipuncture. 11/07/14 Completed Results Most recent to oldest [Reference Range]: 1 2 RBC Morphology [Normal] Normal (11/26/17 3:45 PM) Normal (11/07/14 11:45 AM) TSH [0.450-4.500 uIU/mL] 1.610 uIU/mL (11/07/14 3:13 PM) Glucose Random [60-105 mg/dL] 82 mg/dL (11/07/14 11:45 AM) Hct [33.0-51.0 %] 38.1 % (11/26/17 3:45 PM) 41.7 % (11/07/14 11:45 AM) Hgb [12.0-16.0 g/dL] 13.0 g/dL (11/26/17 3:45 PM) 13.6 g/dL (11/07/14 11:45 AM) MCH [25.0-35.0 pg] 29.0 pg (11/26/17 3:45 PM) 28.7 pg (11/07/14 11:45 AM) MCHC [32.0-36.0 %] 34.0 % (11/26/17 3:45 PM) 32.8 % (11/07/14 11:45 AM) MCV [78.0-102.0 fL] 85.4 fL (11/26/17 3:45 PM) 87.8 fL (11/07/14 11:45 AM) MPV [6.5-10.0 fL] 9.0 fL (11/26/17 3:45 PM) 9.4 fL (11/07/14 11:45 AM) Platelet [150-450 x10^3/uL] 210 x10^3/uL (11/26/17 3:45 PM) 187 x10^3/uL (11/07/14 11:45 AM) RBC [4.10-5.10 x10^6/uL] 4.46 x10^6/uL (11/26/17 3:45 PM) 4.75 x10^6/uL (11/07/14 11:45 AM) RDW [11.5-14.0 %] 12.3 % (11/26/17 3:45 PM) 12.6 % (11/07/14 11:45 AM) T4 Free [0.93-1.60 ng/dL] 1.16 ng/dL (11/07/14 3:13 PM) WBC [4.5-13.0 x10^3/uL] 7.3 x10^3/uL (11/26/17 3:45 PM) 8.6 x10^3/uL (11/07/14 11:45 AM) Protein S Tot [60-150 %] 39 % 1 *LOW* (11/26/17 5:17 PM) Instr WBC [4.5-13.0 x10^3/uL] 7.3 x10^3/ uL (11/26/17 3:45 PM) 8.6 x10^3/uL (11/07/14 11:45 AM) Protein S Free [57-157 %] 56 % 2 *LOW* (11/26/17 5:17 PM) Eosinophils % Man [0.0-3.0 %] 1.0 % (11/26/17 3:45 PM) 3.0 % (11/07/14 11:45 AM) Basophils % Man [0.0-1.0 %] 1.0 % (11/26/17 3:45 PM) 1.0 % (11/07/14 11:45 AM) Lymphocytes % Man [25.0-45.0 %] 47.0 % *HI* (11/26/17 3:45 PM) 30.0 % (11/07/14 11:45 AM) Monocytes % Man [3.0-6.0 %] 2.0 % *LOW* (11/26/17 3:45 PM) 4.0 % (11/07/14 11:45 AM) Vitamin D 25-OH [30.0-100.0 ng/mL] 25.7 ng/mL 3 *LOW* (11/07/14 3:13 PM) Vitamin D 25-OH Reference Lab (11/07/14 11:45 AM) Protein S Func [63-140 %] 57 % 4 *LOW* (11/26/17 5:17 PM) Neutrophils % Man [34.0-64.0 %] 49.0 % (11/26/17 3:45 PM) 62.0 % (11/07/14 11:45 AM) Platelet Estimate [Adequate] Adequate (11/26/17 3:45 PM) Adequate (11/07/14 11:45 AM) Protein C Resist [2.2-3.5 ratio] 2.5 rat io 5 (11/26/17 5:17 PM) dRVVT Scrn [0.0-47.0 second(s)] 29.5 sec ond(s) (11/26/17 5:17 PM) dRVVT Mix Interp Comment: 6 (11/26/17 5:17 PM) PTT LA [0.0-51.9 second(s)] 31.3 second( s) (11/26/17 5:17 PM) Influenza A/B [Neg A & B] Neg A & B (10/15/17 10:32 AM) 1Result Comment: This test was developed and its performance characteristics determined by [employer]. It has not been cleared or approved by the Food and Drug Administration. 2Result Comment: This test was developed and its performance characteristics determined by [employer]. It has not been cleared or approved by the Food and Drug Administration. A deficiency of free protein S antigen (FPS), either congenital or acquired, increases the risk of thromboembolism. Acquired FPS deficiency is more common than congenital deficiency. Acquired deficiency can occur as a result of vitamin K deficiency or antagonism, severe hepatic disorders (hepatitis, cirrhosis, etc.), nephrotic syndrome, inflammatory bowel disease, certain chemotherapeutic agents, L-asparaginse therapy, sepsis, disseminated intravascular coagulation (DIC) and acute thrombosis. FPS values decrease with normal , and are also dependent on age, sex and hormone status. FPS values tend to be lower in a younger age group and lower in women than in men. Levels may be decreased in pre-menopausal women on oral contraceptive agents. Levels may be decreased in patients with polycythemia vera, sickle cell disease and essential thombocythemia. Repeat evaluation on a new plasma sample to confirm or refute this result should be considered, after ruling out acquired causes, depending on the clinical scenario. 3Result Comment: Vitamin D deficiency has been defined by the [place] [employer] and an Endocrine Society practice guideline as a level of serum 25-OH vitamin D less than 20 ng/mL (1,2). The Endocrine Society went on to further define vitamin D insufficiency as a level between 21 and 29 ng/mL (2). 1. IOM ([place] of [employer]). 2010. Dietary reference intakes for calcium and D. [place]: [employer]. 2. Tony MF, Shiraz MONCADA, Sajan CUEVAS, et al. Evaluation, treatment, and prevention of vitamin D deficiency: an Endocrine Society clinical practice guideline. JCEM. 2010; 96(7):1911-30. 4Result Comment: A deficiency of protein S (PS), either congenital or acquired, increases the risk of thromboembolism. PS activity levels may be falsely low in individuals with APCR/Factor V Leiden. Consider performing free protein S antigen in those with APCR/Factor V Leiden before making a diagnosis of protein S deficiency. Acquired PS deficiency is more common than congenital deficiency. PS values decrease with normal , and are also dependent on age, sex and hormone status. PS values tend to be lower in a younger age group and lower in women than in men. Levels may be decreased in pre-menopausal women on oral contraceptive agents. Acquired deficiency can occur as a result of vitamin K deficiency or antagonism, severe hepatic disorders, (hepatitis, cirrhosis, etc.), nephrotic syndrome, inflammatory bowel disease, certain chemotherapeutic agents, L-asparaginse therapy, sepsis, disseminated intravascular coagulation (DIC) and acute thrombosis. Levels may be decreased in patients with polycythemia vera, sickle cell disease and essential thrombocythemia. Repeat evaluation on a new plasma sample to confirm or refute this result should be considered, after ruling out acquired causes, depending on the clinical scenario. 5Result Comment: The APCR result may be falsely increased (masking an abnormal, low APCR result) in patients on direct Xa inhibitor (e.g., rivaroxaban, apixaban, edoxaban) or a direct thrombin inhibitor (e.g., dabigatran) anticoagulant therapy due to assay interference by these drugs. 6Result Comment: No lupus anticoagulant was detected. Vital Signs Most recent to oldest [Reference Range]: 1 2 3 Height Measured 69.25 in (08/04/18 10:33 AM) 68.75 in (11/26/17 3:07 PM) 69 in (10/15/17 9:57 AM) Weight Measured 124 lb (08/04/18 10:33 AM) 119 lb (11/26/17 3:07 PM) 119.4 lb (10/15/17 9:57 AM) Body Mass Index 18.18 kg/m2 (08/04/18 10:33 AM) 17.7 kg/m2 (11/26/17 3:07 PM) 17.63 kg/m2 (10/15/17 9:57 AM) BSA 1.66 m2 (08/04/18 10:33 AM) 1.62 m2 (11/26/17 3:07 PM) 1.62 m2 (10/15/17 9:57 AM) Temperature Temporal [97.3-100 DegF] 101.6 DegF *HI* (08/04/18 10:33 AM) Temperature Temporal [96.8-100.4 DegF] 98.5 DegF (11/26/17 3:07 PM) 100.4 DegF (10/15/17 9:57 AM) Blood Pressure [90-138/45-84 mmHg] 108/66mmHg (11/26/17 3:07 PM) 122/78mmHg (03/31/17 3:21 PM) 132/79mmHg (12/11/15 1:16 PM) Mean Arterial Pressure 80 mmHg (11/26/17 3:07 PM) 93 mmHg (03/31/17 3:21 PM) 97 mmHg (12/11/15 1:16 PM) Peripheral Pulse Rate [55-90 bpm] 60 bpm (11/26/17 3:07 PM) 72 bpm (11/07/14 11:22 AM) 67 bpm (01/17/14 11:21 AM) Oxygen Saturation [94-100 %] 96 % (08/04/18 10:33 AM) Allergies Verified? Yes (11/26/17 3:07 PM) Yes (10/15/17 9:57 AM) Yes (03/31/17 3:21 PM) Medication History Verified? Yes (11/26/17 3:07 PM) Yes (10/15/17 9:57 AM) Yes (03/31/17 3:21 PM) Social History Social History Type Response Smoking Status Never (less than 100 in lifetime); Concerns about tobacco use in household: No entered on: 10/15/17
--- OUTSIDE RECORDS SUMMARY | 2022-10-23 11:55 | XMS_ITS | Continuity of Care Document ---
Author Name Unknown Organization [facility] Address [address] [place] [address]- Care Team Providers Care Overseer Kosher Kitchen Name Role Phone Unavailable Primary Care Physician Unavailab le Encounter(s) 11/26/[address] [address] Encounter Diagnosis FHx: pulmonary embolism(Discharge Diagnosis) - 11/26/17 Anemia(Discharge Diagnosis) - 11/26/17 Attending Physician: Tuyet Reyes MD 10/15/17 - 10/17/[address] [address] Encounter Diagnosis Fever(Discharge Diagnosis) - 10/15/17 Lymphadenopathy(Discharge Diagnosis) - 10/15/17 Attending Physician: Savage Alexandra MD 03/31/17 - 04/02/[address] [address]- [facility] Encounter Diagnosis Well child check(Discharge Diagnosis) - 03/31/17 Immunization due(Discharge Diagnosis) - 03/31/17 Body mass index 5th to < 85th percentile, pediatric(Discharge Diagnosis) - 03/31/17 Depression screen(Discharge Diagnosis) - 03/31/17 Uses control(Discharge Diagnosis) - 03/31/17 Irregular menses(Discharge Diagnosis) - 03/31/17 Attending Physician: Tuyet Reyes MD Allergies, Adverse Reactions, Alerts No Known Medication Allergies Assessment and Plan Extracted from: Title:Preop Author:Tuyet Reyes MD Date:11/26 Impression and Plan Diagnosis ok for anesthesia. Extracted from: Title:Fever-lymphadenopathy Author:Naldo Alexandra MD Date:10/15/17 Impression and Plan Diagnosis Fever (BSV56-KY R50.9). Sore throat (WCZ13-TJ J02.9). Lymphadenopathy (LTM02-YZ R59.1). Plan: Patient has fever and sore [...] year WCC/OCP refill Author:Anna Marie Reyes MD Date:03/31/17 Impression and Plan Plan: Immunizations per schedule. Diet: Age appropriate diet, Referral to dentist, BMI discussed. Counseled on healthy diet and physical activity recommendations.. Anticipatory Guidance: Adolescence (11 - 21 years). 1. 16 year WCC 2. Irregular menses continue OCPs Diagnostic Tests Pending * Miscellaneous Order (SPA-LC) 11/26/17 * CBC w/Manual Diff (SPA) 11/26/17 Immunizations Given and Recorded Vaccine Date Status [...] tab(s), 4 Refill(s), Type: Soft Stop, Pharmacy: [facility] HOME DELIVERY, TAKE 1 TABLET DAILY Start [...] BMI,pediatric 5% - <85% Discharge Diagnosis 01/17/14 Anemia Discharge Diagnosis 11/26/17 FHx: pulmonary embolism Discharge Diagnosis 11/26/17 Immunization due Discharge Diagnosis 06/13/16 Procedures Procedure Date Related Diagnosis Body Site Status Collection of venous blood b y venipuncture. 11/07/14 Completed Results Chemistry Most recent to oldest [Reference Range]: 1 Glucose Random [60-105 mg/dL] 82 mg/dL (11/07/14 11:45 AM) Vitamin D 25-OH [30.0-100.0 ng/mL] 25.7 ng/mL 1 *LOW* (11/07/14 3:13 PM) Vitamin D 25-OH Reference Lab (11/07/14 11:45 AM) T4 Free [0.93-1.60 ng/dL] 1.16 ng/dL (11/07/14 3:13 PM) TSH [0.450-4.500 uIU/mL] 1.610 uIU/mL (11/07/14 3:13 PM) 1Result Comment: Vitamin D deficiency has been defined by the [place] of Medicine and an Endocrine Society practice guideline as a level of serum 25-OH vitamin D less than 20 ng/mL (1,2). The Endocrine Society went on to further define vitamin D insufficiency as a level between 21 and 29 ng/mL (2). 1. IOM ([place]). 2010. Dietary reference intakes for calcium and D. [place]: The National Academies Press. 2. Tony OAKES, Shiraz MONCADA, Sajan CUEVAS, et al. Evaluation, treatment, and prevention of vitamin D deficiency: an Endocrine Society clinical practice guideline. JCEM. 2010; 96(7):1911-30. Hematology Most recent to oldest [Reference Range]: 1 WBC [4.5-13.0 x10^3/uL] 8.6 x10^3/uL (11/07/14 11:45 AM) Instr WBC [4.5-13.0 x10^3/uL] 8.6 x10^3/ uL (11/07/14 11:45 AM) RBC [4.10-5.10 x10^6/uL] 4.75 x10^6/uL (11/07/14 11:45 AM) Hgb [12.0-16.0 g/dL] 13.6 g/dL (11/07/14 11:45 AM) Hct [33.0-51.0 %] 41.7 % (11/07/14 11:45 AM) MCV [78.0-102.0 fL] 87.8 fL (11/07/14 11:45 AM) MCH [25.0-35.0 pg] 28.7 pg (11/07/14 11:45 AM) MCHC [32.0-36.0 %] 32.8 % (11/07/14 11:45 AM) RDW [11.5-14.0 %] 12.6 % (11/07/14 11:45 AM) Platelet [150-450 x10^3/uL] 187 x10^3/uL (11/07/14 11:45 AM) MPV [6.5-10.0 fL] 9.4 fL (11/07/14 11:45 AM) Lymphocytes % Man [25.0-45.0 %] 30.0 % (11/07/14 11:45 AM) Neutrophils % Man [34.0-64.0 %] 62.0 % (11/07/14 11:45 AM) Monocytes % Man [3.0-6.0 %] 4.0 % (11/07/14 11:45 AM) Eosinophils % Man [0.0-3.0 %] 3.0 % (11/07/14 11:45 AM) Basophils % Man [0.0-1.0 %] 1.0 % (11/07/14 11:45 AM) Platelet Estimate [Adequate] Adequate (11/07/14 11:45 AM) RBC Morphology [Normal] Normal (11/07/14 11:45 AM) Immunology/Serology Most recent to oldest [Reference Range]: 1 Influenza A/B [Neg A & B] Neg A & B (10/15/17 10:32 AM) Vital Signs Most recent to oldest [Reference Range]: 1 2 3 Height Measured 68.75 in (11/26/17 3:07 PM) 69 in (10/15/17 9:57 AM) 68.5 in (03/31/17 3:21 PM) Weight Measured 119 lb (11/26/17 3:07 PM) 119.4 lb (10/15/17 9:57 AM) 128 lb (03/31/17 3:21 PM) Body Mass Index 17.7 kg/m2 (11/26/17 3:07 PM) 17.63 kg/m2 (10/15/17 9:57 AM) 19.18 kg/m2 (03/31/17 3:21 PM) BSA 1.62 m2 (11/26/17 3:07 PM) 1.62 m2 (10/15/17 9:57 AM) 1.67 m2 (03/31/17 3:21 PM) Temperature Temporal [96.8-100.4 DegF] 98.5 DegF (11/26/17 3:07 PM) 100.4 DegF (10/15/17 9:57 AM) 98.4 DegF (11/07/14 11:22 AM) Blood Pressure [90-138/45-84 mmHg] 108/66mmHg (11/26/17 3:07 PM) 122/78mmHg (03/31/17 3:21 PM) 132/79mmHg (12/11/15 1:16 PM) Mean Arterial Pressure 80 mmHg (11/26/17 3:07 PM) 93 mmHg (03/31/17 3:21 PM) 97 mmHg (12/11/15 1:16 PM) Peripheral Pulse Rate [55-90 bpm] 60 bpm (11/26/17 3:07 PM) 72 bpm (11/07/14 11:22 AM) 67 bpm (01/17/14 11:21 AM) Allergies Verified? Yes (11/26/17 3:07 PM) Yes (10/15/17 9:57 AM) Yes (03/31/17 3:21 PM) Medication History Verified? Yes (11/26/17 3:07 PM) Yes (10/15/17 9:57 AM) Yes (03/31/17 3:21 PM) Social History Social History Type Response Smoking Status Never (less than 100 in lifetime); Concerns about tobacco use in household: No entered on: 10/15/17
--- OUTSIDE RECORDS SUMMARY | 2022-10-23 11:55 | XMS_ITS | Continuity of Care Document ---
Author Name Unknown Organization [facility] Address [facility] [address] [place] [address]- Care Team Providers Care Operations Scheduler Name Role Phone Tuyet Reyes MD Primary Care Physician Encounter 05/24/19 - 05/26/19 [facility] [address] [place], [place] [address] Encounter Diagnosis Sore throat(Discharge Diagnosis) - 05/24/19 EBV positive mononucleosis syndrome(Discharge Diagnosis) - 05/24/19 Attending Physician: Leatha Magaña DO Allergies, Adverse Reactions, Alerts No Known Medication Allergies Assessment and Plan Extracted from: Title:Mononucleosis Author:Leatha Magaña DO Don e:05/24/19 EBV positive mononucleosis s yndrome??(B27.00) ?? Discussed viral etiology, and supportive cares, including rest, fluids, tyelnol/ibuprofen as needed, and abstaining from contact sports for 3 weeks. Return if symptoms are worsening or not improving.?Handout provided ?? Sore throat??(J02.9) ??Negative strep. ??We'll follow up PCR and call if positive. ??Normal white blood cell count. Ordered: .Streptococcus Group A PCR, Specimen Type: Swab, Collected, 05/24/19 13:14:00 TEACHING ARTIST by Violetta Milian LPN, Routine collect, Lab Collect, Sore throat EBV Acute Infection Antibodies (SPA-LC), Specimen Type: Blood, 05/24/19 13:34:00 TEACHING ARTIST by Leatha Magaña DO, Routine collect, Lab Collect, To send if monospot is negative., Sore throat Manual Diff (SPA), Specimen Type: Blood, Collected, 05/24/19 13:35:00 TEACHING ARTIST by Leatha Magaña DO, Routine collect, Lab Collect, Sore throat [place] Test (SPA), Specimen Type: Blood, 05/24/19 13:34:00 TEACHING ARTIST by Leatha Magaña DO, Routine collect, Lab Collect, Sore throat Strep A Screen (SPA), Specimen Type: Swab, 05/24/19 13:14:00 TEACHING ARTIST by Violetta Milian LPN, Routine collect, Lab Collect, Sore throat WBC w/Manual Diff (SPA), Specimen Type: Blood, 05/24/19 13:34:00 TEACHING ARTIST by Leatha Magaña DO, Routine collect, Lab Collect, Sore throat ?? Immunizations Given and Recorded Vaccine Date Status [...] Effective Dates Health Status Clinical Service Informant Sore throat Discharge Diagnosis 05/24/19 EBV positive mononucleosis syndrome Discharge Diagnosis 05/24/19 Non-Specified Procedures Procedure Date Related Diagnosis Body Site Status Collection of venous blood b y venipuncture 05/24/19 Completed Results Most recent to oldest [Reference Range]: 1 EBV Acute IA Reference Lab (05/24/19 1:35 PM) Strep A Screen [Negative] Negative (05/24/19 1:15 PM) Strep Gp A PCR [Negative] Negative (05/24/19 1:15 PM) Strep Gp A PCR Interp Group A Streptococ cus target DNA not detected *Unknown* (05/24/19 1:15 PM) Mononucleosis Scrn [Negative] Positive *ABN* (05/24/19 1:35 PM) RBC Morphology [Normal] Normal (05/24/19 1:35 PM) WBC [4.5-11.0 x10^3/uL] 9.4 x10^3/uL (05/24/19 1:35 PM) Eosinophils % Man [0.0-3.0 %] 2.0 % (05/24/19 1:35 PM) Lymphocytes % Man [24.0-44.0 %] 37.0 % (05/24/19 1:35 PM) Monocytes % Man [3.0-6.0 %] 8.0 % *HI* (05/24/19 1:35 PM) Neutrophils % Man [35.0-66.0 %] 53.0 % (05/24/19 1:35 PM) Platelet Estimate [Adequate] Adequate (05/24/19 1:35 PM) Vital Signs Most recent to oldest [Reference Range]: 1 Weight Measured 126.2 lb (05/24/19 1:10 PM) Temperature Temporal [97.3-100 DegF] 98. 9 DegF (05/24/19 1:10 PM) Social History Social History Type Response Smoking Status Never (less than 100 in lifetime); Concerns about tobacco use in household: No entered on: 10/15/17
--- OUTSIDE RECORDS SUMMARY | 2022-10-23 11:55 | XMS_ITS | Continuity of Care Document ---
Author Name Unknown Organization [facility] Address [facility] [place] [address] [place] [address]- Care Team Providers Care Blood Tester Name Role Phone Tuyet Reyes MD Primary Care Physician Encounter(s) 01/13/19 [place] [address] [place] [place] [address] Encounter Diagnosis Immunization due(Discharge Diagnosis) - 01/13/19 Well adult exam(Discharge Diagnosis) - 01/13/19 Depression screen(Discharge Diagnosis) - 01/13/19 Body mass index 5th to < 85th percentile, pediatric(Discharge Diagnosis) - 01/13/19 Attending Physician: Tuyet Reyes MD 08/04/18 - 08/04/18 [place] [address] [place] [place] [address] 08/04/18 - 08/06/18 [place] [address] [place] [address] Encounter Diagnosis Fever(Discharge Diagnosis) - 08/04/18 Fatigue(Discharge Diagnosis) - 08/04/18 Headache(Discharge Diagnosis) - 08/04/18 Sore throat(Discharge Diagnosis) - 08/04/18 Muscle ache(Discharge Diagnosis) - 08/04/18 Attending Physician: Tuyet Reyes MD Allergies, Adverse Reactions, Alerts No Known Medication Allergies Assessment and Plan Extracted from: Title:18 [address] [facility] Author:Tuyet Reyes MD Date: Impression and Plan Plan: BMI discussed. Counseled on healthy diet and physical activity recommendations., Return in 1 year for well exam.. Refer to: Referral to dentist. 1. [address] [facility] 2. exercise -induced bronchospasm 3. Irregular menses and continues on OCPs Extracted from: Title:Febrile illness/fatigue/headache Author:Tuyet Rolon MD Date:08/04/18 1. Fatigue 2. Febrile illness 3. Body aches 4. Headaches Likely viral etiology with WBC 4,200. Negative strep ID, negative mono spot, negative flu test. Send out labs include: Lyme titers, EBV and CMV titers, Vit D (low in the past), NASIR and Rheumatoid factor. I will call mother with these results: [phone] Sx cares include: Sleep: needs 8-9 hours Hydration: urine output clear or light yellow to assure adequate H2O intake Ibuprofen for fever >101 and/or for throat pain. Keep track of fevers. Follow-up if fevers >101 persist. For worsening headaches consider referral to Neurology ? 30 minutes total/20 minutes counseling Extracted from: Title:Preop Author:Tuyet Reyes MD Date:11/26 Patient: KARMA PULLIAM Age: 17 years Sex: Female : 2000 Associated Diagnoses: None Author: Tuyet Reyes MD Preoperative Information Indication for surgery Chief Complaint 11/26/2017 3:07 PM CDT Preop DCR right eye on 12/01/17 @ [facility] fax [phone] preop Review of Systems Constitutional: Negative. Eye: [...] Problems (Selected) Irregular menses / SNOMED CT 880109856 / Confirmed Uses control / SNOMED CT 54755942 / Confirmed Allergic Rhinitis, Cause Unspecified / [...] No. Other Assessment Comments: 01/17/2014 - [place] [employer] , Krystal Drinks well water, no fluoride [...] range of motion, Normal strength. Integumentary: Warm, [place], No rash. Neurologic: Alert, Oriented, Normal motor [...] checked. IT is normal Extracted from: Title:Fever-lymphadenopathy Author:Naldo Alexandra MD vijim Date:10/15/17 Impression and Plan Diagnosis Fever (EXB65-ST R50.9). Sore throat (EFS37-GE J02.9). Lymphadenopathy (IKQ93-EP R59.1). Plan: Patient has fever and sore [...] or questions we will follow up sooner.. Immunizations Given and Recorded Vaccine Date Status [...] Date: 01/13/19 Stop Date: 12/15/19 Status: Ordered Problem List Condition Effective Dates Status Health Status Inform ant Uses control(Confirmed) Active Irregular menses(Confirmed) Active Diagnosis Diagnosis Type Effective Dates Health Status Clinical Service Informant Fever Discharge Diagnosis 10/15/17 Lymphadenopathy Discharge Diagnosis 10/15/17 FHx: pulmonary embolism Discharge Diagnosis 11/26/17 Preop examination Discharge Diagnosis 11/26/17 Anemia Discharge Diagnosis 11/26/17 Stenosis of nasolacrimal duct Discharge Diagnosis 11/26/17 Well child check Discharge Diagnosis 12/11/15 Immunization due Discharge Diagnosis 12/11/15 Body mass index 5th to < 85th percentile, pediatric Discharge Diagnosis 12/11/15 Encounter for well child exam with abnormal findings Discharge Diagnosis 12/11/15 Exercise-induced asthma Discharge Diagnosis 12/11/15 Depression screen Discharge Diagnosis 12/11/15 Immunization due Discharge Diagnosis 02/12/16 Fever Discharge Diagnosis 08/04/18 Fatigue Discharge Diagnosis 08/04/18 Headache Discharge Diagnosis 08/04/18 Sore throat Discharge Diagnosis 08/04/18 Muscle ache Discharge Diagnosis 08/04/18 Immunization due Discharge Diagnosis 06/13/16 Immunization due Discharge Diagnosis 01/13/19 Well adult exam Discharge Diagnosis 01/13/19 Depression screen Discharge Diagnosis 01/13/19 Body mass index 5th to < 85th percentile, pediatric Discharge Diagnosis 01/13/19 Well child visit Discharge Diagnosis 01/17/14 BMI,pediatric 5% - <85% Discharge Diagnosis 01/17/14 Immunization due Discharge Diagnosis 03/31/17 Irregular menses Discharge Diagnosis 03/31/17 Well child check Discharge Diagnosis 03/31/17 Body mass index 5th to < 85th percentile, pediatric Discharge Diagnosis 03/31/17 Depression screen Discharge Diagnosis 03/31/17 Uses control Discharge Diagnosis 03/31/17 Procedures Procedure Date Related Diagnosis Body Site Status Collection of venous blood b y venipuncture 08/04/18 Completed Collection of venous blood b y venipuncture 08/04/18 Completed Collection of venous blood b y venipuncture 11/26/17 Completed Collection of venous blood b y venipuncture 11/26/17 Completed Collection of venous blood b y venipuncture. 11/07/14 Completed Results Most recent to oldest [Reference Range]: 1 2 3 EBV Acute IA Reference Lab (08/04/18 11:00 AM) EBV Ab Interp Comment 1 (08/04/18 11:35 AM) NASIR [Negative] Negative (08/04/18 11:35 AM) Mononucleosis Scrn [Negative] Negative (08/04/18 11:00 AM) RBC Morphology [Normal] Normal (08/04/18 11:00 AM) Normal (11/26/17 3:45 PM) Normal (11/07/14 11:45 AM) TSH [0.450-4.500 uIU/mL] 1.610 uIU/mL (11/07/14 3:13 PM) Glucose Random [60-105 mg/dL] 82 mg/dL (11/07/14 11:45 AM) Hct [33.0-51.0 %] 40.3 % (08/04/18 11:00 AM) 38.1 % (11/26/17 3:45 PM) 41.7 % (11/07/14 11:45 AM) Hgb [12.0-16.0 g/dL] 13.0 g/dL (08/04/18 11:00 AM) 13.0 g/dL (11/26/17 3:45 PM) 13.6 g/dL (11/07/14 11:45 AM) MCH [26.0-34.0 pg] 28.2 pg (08/04/18 11:00 AM) MCH [25.0-35.0 pg] 29.0 pg (11/26/17 3:45 PM) 28.7 pg (11/07/14 11:45 AM) MCHC [32.0-36.0 %] 32.4 % (08/04/18 11:00 AM) 34.0 % (11/26/17 3:45 PM) 32.8 % (11/07/14 11:45 AM) MCV [80.0-100.0 fL] 87.0 fL (08/04/18 11:00 AM) MCV [78.0-102.0 fL] 85.4 fL (11/26/17 3:45 PM) 87.8 fL (11/07/14 11:45 AM) MPV [6.5-10.0 fL] 9.4 fL (08/04/18 11:00 AM) 9.0 fL (11/26/17 3:45 PM) 9.4 fL (11/07/14 11:45 AM) Platelet [150-450 x10^3/uL] 168 x10^3/uL (08/04/18 11:00 AM) 210 x10^3/uL (11/26/17 3:45 PM) 187 x10^3/uL (11/07/14 11:45 AM) RBC [4.00-5.20 x10^6/uL] 4.63 x10^6/uL (08/04/18 11:00 AM) RBC [4.10-5.10 x10^6/uL] 4.46 x10^6/uL (11/26/17 3:45 PM) 4.75 x10^6/uL (11/07/14 11:45 AM) RDW [11.5-13.1 %] 13.0 % (08/04/18 11:00 AM) RDW [11.5-14.0 %] 12.3 % (11/26/17 3:45 PM) 12.6 % (11/07/14 11:45 AM) Sed Rate [0-20 mm] 2 mm (08/04/18 11:04 AM) T4 Free [0.93-1.60 ng/dL] 1.16 ng/dL (11/07/14 3:13 PM) WBC [4.5-11.0 x10^3/uL] 4.2 x10^3/uL *LOW* (08/04/18 11:00 AM) WBC [4.5-13.0 x10^3/uL] 7.3 x10^3/uL (11/26/17 3:45 PM) 8.6 x10^3/uL (11/07/14 11:45 AM) Protein S Tot [60-150 %] 39 % 2 *LOW* (11/26/17 5:17 PM) Instr WBC [4.5-11.0 x10^3/uL] 4.2 x10^3/uL *LOW* (08/04/18 11:00 AM) Instr WBC [4.5-13.0 x10^3/uL] 7.3 x10^3/uL (11/26/17 3:45 PM) 8.6 x10^3/uL (11/07/14 11:45 AM) CMV IgG Reference Lab (08/04/18 11:00 AM) CMV IgM Reference Lab (08/04/18 11:00 AM) EBV EA Ab IgG [0.0-8.9 u/mL] <9.0 u/mL 3 (08/04/18 11:35 AM) EBV NA IgG [0.0-17.9 u/mL] <18.0 u/mL 4 (08/04/18 11:35 AM) EBV VCA Ab IgG [0.0-17.9 u/mL] <18.0 u/mL 5 (08/04/18 11:35 AM) EBV VCA Ab IgM [0.0-35.9 u/mL] <36.0 u/mL 6 (08/04/18 11:35 AM) Protein S Free [57-157 %] 56 % 7 *LOW* (11/26/17 5:17 PM) Eosinophils % Man [0.0-3.0 %] 0.0 % (08/04/18 11:00 AM) 1.0 % (11/26/17 3:45 PM) 3.0 % (11/07/14 11:45 AM) Basophils % Man [0.0-1.0 %] 1.0 % (11/26/17 3:45 PM) 1.0 % (11/07/14 11:45 AM) Lymphocytes % Man [24.0-44.0 %] 15.0 % *LOW* (08/04/18 11:00 AM) Lymphocytes % Man [25.0-45.0 %] 47.0 % *HI* (11/26/17 3:45 PM) 30.0 % (11/07/14 11:45 AM) Monocytes % Man [3.0-6.0 %] 2.0 % *LOW* (08/04/18 11:00 AM) 2.0 % *LOW* (11/26/17 3:45 PM) 4.0 % (11/07/14 11:45 AM) Vitamin D 25-OH [30.0-100.0 ng/mL] 12.5 ng/mL 8 *LOW* (08/04/18 11:35 AM) 25.7 ng/mL 9 *LOW* (11/07/14 3:13 PM) Vitamin D 25-OH Reference Lab (08/04/18 11:00 AM) Rheumatoid Factor Reference Lab (08/04/18 11:04 AM) CMV Ab IgG [0.00-0.59 u/mL] <0.60 u/mL 10 (08/04/18 11:35 AM) CMV Ab IgM [0.0-29.9 AU/mL] <30.0 AU/mL 11 (08/04/18 11:35 AM) Protein S Func [63-140 %] 57 % 12 *LOW* (11/26/17 5:17 PM) Neutrophils % Man [35.0-66.0 %] 83.0 % *HI* (08/04/18 11:00 AM) Neutrophils % Man [34.0-64.0 %] 49.0 % (11/26/17 3:45 PM) 62.0 % (11/07/14 11:45 AM) Platelet Estimate [Adequate] Adequate (08/04/18 11:00 AM) Adequate (11/26/17 3:45 PM) Adequate (11/07/14 11:45 AM) Protein C Resist [2.2-3.5 ratio] 2.5 ratio 13 (11/26/17 5:17 PM) Culture Throat No GABS Recovd (08/04/18 10:58 AM) dRVVT Scrn [0.0-47.0 second(s)] 29.5 second(s) (11/26/17 5:17 PM) Lyme Ab IgM [0.00-0.79 index] <0.80 index 14 (08/04/18 11:35 AM) dRVVT Mix Interp Comment: 15 (11/26/17 5:17 PM) PTT LA [0.0-51.9 second(s)] 31.3 second(s) (11/26/17 5:17 PM) Rheumatoid Factor Interp [0.0-13.9 IU/mL] <10.0 IU/mL (08/04/18 11:35 AM) Lyme WB Reference Lab (08/04/18 11:00 AM) Influenza A/B [Neg A & B] Neg A & B (08/04/18 10:58 AM) Neg A & B (10/15/17 10:32 AM) Lyme Ab IgG/IgM [0.00-0.90] <0.91 16 (08/04/18 11:35 AM) Strep ID [Negative] Negative (08/04/18 10:58 AM) 1Result Comment: EBV Interpretation Chart Interpretation EBV-IgM EA(D)-IgG VCA-IgG EBNA-IgG EBV Seronegative - - - - Early Phase + - - - Acute Primary + +or- + - Infection Convalescence/Past - +or- + + Infection Reactivated +or- + + + Infection + Antibody Present - Antibody Absent 2Result Comment: This test was developed and its performance characteristics determined by [facility]. It has not been cleared or approved by the Food and Drug Administration. 3Result Comment: Negative < 9.0 Equivocal 9.0 - 10.9 Positive >10.9 4Result Comment: Negative <18.0 Equivocal 18.0 - 21.9 Positive >21.9 5Result Comment: Negative <18.0 Equivocal 18.0 - 21.9 Positive >21.9 6Result Comment: Negative <36.0 Equivocal 36.0 - 43.9 Positive >43.9 7Result Comment: This test was developed and its performance characteristics determined by [facility]. It has not been cleared or approved [...] acquired causes, depending on the clinical scenario. 8Result Comment: Vitamin D deficiency has been defined by the [place] [employer] and an Endocrine Society practice guideline as a level of serum 25-OH vitamin D less than 20 ng/mL (1,2). The Endocrine Society went on to further define vitamin D insufficiency as a level between 21 and 29 ng/mL (2). 1. IOM ([place] [employer]). 2010. Dietary reference intakes for calcium and D. [place]: The National Academies Press. 2. Tony MF, Shiraz [place], Sajan CUEVAS, et al. Evaluation, treatment, and prevention of vitamin D deficiency: an Endocrine Society clinical practice guideline. JCEM. 2010; 96(7):1911-30. 9Result Comment: Vitamin D deficiency has been defined by the [place] [employer] and an Endocrine Society practice guideline as a level of serum 25-OH vitamin D less than 20 ng/mL (1,2). The Endocrine Society went on to further define vitamin D insufficiency as a level between 21 and 29 ng/mL (2). 1. IOM ([place] [employer]). 2010. Dietary reference intakes for calcium and D. [place]: The National Academies Press. 2. Tony MF, [place] MONCADA, Sajan CUEVAS, et al. Evaluation, treatment, and prevention of vitamin D deficiency: an Endocrine Society clinical practice guideline. JCEM. 2010; 96(7):1911-30. 10Result Comment: Negative <0.60 Equivocal 0.60 - 0.69 Positive >0.69 11Result Comment: Negative <30.0 Equivocal 30.0 - 34.9 Positive >34.9 A positive result is generally indicative of acute infection, reactivation or persistent IgM production. 12Result Comment: A deficiency of protein S (PS), [...] acquired causes, depending on the clinical scenario. 13Result Comment: The APCR result may be falsely increased (masking an abnormal, low APCR result) in patients on direct Xa inhibitor (e.g., rivaroxaban, apixaban, edoxaban) or a direct thrombin inhibitor (e.g., dabigatran) anticoagulant therapy due to assay interference by these drugs. 14Result Comment: Negative <0.80 Equivocal 0.80 - 1.19 Positive >1.19 IgM levels may peak at 3-6 weeks post infection, then gradually decline. 15Result Comment: No lupus anticoagulant was detected. 16Result Comment: Negative <0.91 Equivocal 0.91 - 1.09 Positive >1.09 Unit of Measure: ISR Vital Signs Most recent to oldest [Reference Range]: 1 2 3 Height Measured 69.25 in (01/13/19 1:14 PM) 69.25 in (08/04/18 10:33 AM) 68.75 in (11/26/17 3:07 PM) Weight Measured 130.6 lb (01/13/19 1:14 PM) 124 lb (08/04/18 10:33 AM) 119 lb (11/26/17 3:07 PM) Body Mass Index 19.15 kg/m2 (01/13/19 1:14 PM) 18.18 kg/m2 (08/04/18 10:33 AM) 17.7 kg/m2 (11/26/17 3:07 PM) BSA 1.7 m2 (01/13/19 1:14 PM) 1.66 m2 (08/04/18 10:33 AM) 1.62 m2 (11/26/17 3:07 PM) Temperature Temporal [97.3-100 DegF] 101.6 DegF *HI* (08/04/18 10:33 AM) Temperature Temporal [96.8-100.4 DegF] 98.5 DegF (11/26/17 3:07 PM) 100.4 DegF (10/15/17 9:57 AM) Blood Pressure [90-130/60-80 mmHg] 101/54mmHg (01/13/19 1:14 PM) Blood Pressure [90-138/45-84 mmHg] 108/66mmHg (11/26/17 3:07 PM) 122/78mmHg (03/31/17 3:21 PM) Mean Arterial Pressure 70 mmHg (01/13/19 1:14 PM) 80 mmHg (11/26/17 3:07 PM) 93 mmHg (03/31/17 3:21 PM) Peripheral Pulse Rate [55-90 bpm] 60 bpm (11/26/17 3:07 PM) 72 bpm (11/07/14 11:22 AM) 67 bpm (01/17/14 11:21 AM) Oxygen Saturation [94-100 %] 96 % (08/04/18 10:33 AM) Allergies Verified? Yes (01/13/19 1:14 PM) Yes (11/26/17 3:07 PM) Yes (10/15/17 9:57 AM) Medication History Verified? Yes (01/13/19 1:14 PM) Yes (11/26/17 3:07 PM) Yes (10/15/17 9:57 AM) Social History Social History Type Response Smoking Status Never (less than 100 in lifetime); Concerns about tobacco use in household: No entered on: 10/15/17
--- OUTSIDE RECORDS SUMMARY | 2022-10-23 11:55 | XMS_ITS | Continuity of Care Document ---
Author Name Unknown Organization [facility] Address [place] [address] [place] [address]- Care Team Providers Care Home Care Provider Name Role Phone Tuyet Reyes MD Primary Care Physician [phone] Encounter 08/04/18 - 08/06/18 [place] [address] [address] [place] [address] [facility] Encounter Diagnosis Fever(Discharge Diagnosis) - 08/04/18 [...] I will call mother with these results: [phone] Sx cares include: Sleep: needs 8-9 hours [...]
[2022-10-23] MEDS: ACETAMINOPHEN 500 MG TABLET 1000 MG PO (12:02)
[2022-10-23 12:13] LABS: Basophils Percent Auto 0.1 % (0.0-3.0); Eosinophils Percent Auto 0.7 % (0.0-7.0); Hemoglobin* 13.7 gm/dL (12.0-16.0); Immature Granulocytes Pct Auto 0.3 %; Mean Corpuscular HGB Conc 32 gm/dL (32-36); Mean Corpuscular Hemoglobin 29 pg (26-34); Mean Corpuscular Volume 90 fL (80-100); Monocytes Percent Auto 5.7 % (0.0-11.0); Neutrophils Percent Auto 87.2 % (42.0-72.0); Platelet Count* 173 K/uL (140-440); RDW Coefficient of Variation % 12.4 % (11.5-15.5); Red Blood Count 4.79 m/uL (4.00-5.20)
[2022-10-23 12:19] LABS: Slide Review Reflex No
[2022-10-23 12:25] LABS: Chloride* 104 mmol/L (96-114); Sodium* 137 mmol/L (135-149)
[2022-10-23 12:28] LABS: Blood Urea Nitrogen* 14 mg/dL (5-24); Carbon Dioxide* 24 mmol/L (20-32); Creatinine* 0.9 mg/dL (0.5-1.5); Est. Creatinine Clearance* 98.29; Estimated Glomerular Filt Rate 93 ml/min
[2022-10-23 12:29] LABS: Calcium* 8.8 mg/dL (8.4-10.6); Glucose* 100 mg/dL (60-115)
[2022-10-23 12:55] LABS: Strep A DNA Probe* NOT DETECTED (Not Detectd)
[2022-10-23 13:02] LABS: PCR FLU A Negative PCR FLU A (Negative); PCR FLU B Negative PCR FLU B (Negative); PCR RSV Negative PCR RSV (Negative)
[2022-10-23 13:03] LABS: SARS PCR* Negative SARS-CoV-2 (Negative)
[2022-10-23 13:34] LABS: Mono Screen* Negative (Negative)
== END 2022-10-23 13:41 | disposition home or self-care (01) ==
LOC: ED 11:53
PROVIDERS: Emergency Provider Family Medicine
DX: J02.9 Acute pharyngitis, unspecified (principal)
CPT/HCPCS: 36415; 80048; 85025; 86308; 87631; 87651; 99283; 99284; A9270